=== PATIENT | male | born 1950 | race Caucasian/White ===

== ENCOUNTER 2016-08-20 09:23 | Day surgery (SDC) | payer BC ==
[~2016-08-20] VITALS: Ht 175.3 cm; Wt 76.8 kg
[~2016-08-20 09:23] MED LIST: ACIDOPHILUS PO; ANCEF 2 GM/22 GM/SY1 IV; ASPIRIN 81M81 MG/TA2 PO; ASPIRIN E.C. 8181 MG PO; CEPHALEXIN500 M1 PO; DESIPRAMINE HC150 MG PO; DESYREL 100MG100 MG PO; DESYREL DIVIDO150 M1 PO; FISH OIL1000 MG PO; L-LYSINE500 MG PO; LEVAQUIN 5500 MG/TA1 PO; LITHIUM CARBON450 MG PO; LITHOBID 3300 MG/TAB PO; MEDROL 4MG DOSPA4 MG PO; MULTIPLE VITAMI1 CAP PO; NORCO 325 MG-51 TAB PO; NORCO 325 MG-7.1 TAB PO; NORPRAMIN150 MG PO; PRAVACHOL 40MG40 MG PO; PROTONIX 40MG T40 MG PO; ROXICODONE 55 MG/TAB PO; THERAPEUTIC VIT1 CAP PO; TRICOR145 MG PO; TYLENOL 325MG325 MG PO; VITAMIN C500 MG PO; VOLTAREN GEL 1%1 TU TP
[2016-08-20 10:29] VITALS: BP 138/88; PULSE 93; TEMP 97.5
[2016-08-20] MEDS ORDERED: ASPIRIN E.C. 8181 MG PO (10:32)
[2016-08-20 13:30] VITALS: BP 113/71; PULSE 84; TEMP 97.6
[2016-08-20 13:45] VITALS: BP 116/73; PULSE 81
[2016-08-20 14:00] VITALS: BP 116/72; PULSE 84
[2016-08-20 14:15] VITALS: BP 116/78; PULSE 89
[2016-08-20 14:45] VITALS: BP 107/71; PULSE 89
== END 2016-08-20 15:48 | disposition home or self-care (01) ==
LOC: SDCO 09:23
DX: S46.011A Strain of muscle(s) and tendon(s) of the rotator cuff of right shoulder, initial encounter (principal); E78.5 Hyperlipidemia, unspecified; Z85.46 Personal history of malignant neoplasm of prostate; W19.XXXA Unspecified fall, initial encounter
CPT/HCPCS: C1713; J0171; J0690; J1100; J2250; J2405; J2704; J3010; J7120

== ENCOUNTER 2018-10-28 09:10 | Day surgery (SDC) | payer BC ==
[~2018-10-28] VITALS: Ht 175.3 cm; Wt 82.0 kg
[~2018-10-28 09:10] MED LIST changes: +ONE-A-DAY ESSE1 EACH PO; -THERAPEUTIC VIT1 CAP PO
[2018-10-28] MEDS ORDERED: MASON NATURAL1200 MG PO (09:57)
[2018-10-28] MEDS ORDERED: MIRALAX PA17 GM/Dose PO (09:58)
[2018-10-28 10:16] VITALS: BP 168/90; PULSE 98; TEMP 98.1
[2018-10-28 12:25] VITALS: BP 144/81; PULSE 80; TEMP 98.3
--- NOTE | 2018-10-28 12:25 | NUR ---
Patient arrives back to [facility] alert, denies pain or nausea. Patient monitor applied, vitals stable, patient's spouse brought to bedside.
--- NOTE | 2018-10-28 12:30 | NUR ---
Patient given muffin and soda at this time.
[2018-10-28 12:40] VITALS: BP 133/93; PULSE 79
--- NOTE | 2018-10-28 12:45 | NUR ---
Patient tolerates muffin and soda without any nausea. Patient reports he is feeling good, some slight burning at the catheter insertion site, denies wanting any pain medication. Patient states he wants to go home.
[2018-10-28 12:55] VITALS: BP 131/86; PULSE 77
--- NOTE | 2018-10-28 13:10 | NUR ---
300ml of Clear/Rupali color urine drained from catheter bag at this time while changing large back to leg bag.
--- NOTE | 2018-10-28 13:30 | NUR ---
Dismissal instructions gone over with patient and patient's spouse. Both verbalize understanding and all questions answered.
--- NOTE | 2018-10-28 13:35 | NUR ---
Patient discharged to private vehicle at visitor enterance, spouse is driving. Patient and spouse leave thanking staff for services.
== END 2018-10-28 13:35 | disposition home or self-care (01) ==
LOC: SDCO 09:10
DX: N32.0 Bladder-neck obstruction (principal); Z79.82 Long term (current) use of aspirin; Z87.891 Personal history of nicotine dependence; K21.9 Gastro-esophageal reflux disease without esophagitis; G62.9 Polyneuropathy, unspecified; G43.909 Migraine, unspecified, not intractable, without status migrainosus; F32.9 Major depressive disorder, single episode, unspecified; M19.90 Unspecified osteoarthritis, unspecified site; Z85.46 Personal history of malignant neoplasm of prostate; Z92.3 Personal history of irradiation; E29.1 Testicular hypofunction; Z90.79 Acquired absence of other genital organ(s); Z79.899 Other long term (current) drug therapy; Z96.652 Presence of left artificial knee joint; Z90.49 Acquired absence of other specified parts of digestive tract
CPT/HCPCS: C1769; J0690; J1100; J1885; J2405; J2704; J3010; J3301; J7120